=== PATIENT | male | born 2000 | race Caucasian/White ===

== ENCOUNTER 2022-05-19 03:24 | Emergency (ER) | payer MEDICAID, SELFPAY ==
[2022-05-19 03:34] VITALS: BP 111/60; PULSE 81; RESP 22; TEMP 36.4; O2SAT 97; BMI 23.3
[2022-05-19 04:19] LABS: MANUAL DIFF FLAG NO
[2022-05-19 04:21] LABS: Basophils Percent Auto 0.2 % (0-2); Eosinophils Percent Auto 0.1 % (0-4); Hematocrit 40.8 % (42.0-52.0); Hemoglobin 13.4 g/dl (14.0-18.0); Imm Gran Abs Auto 0.07 X10*3/uL (0.00-0.03); Imm Gran Pct Auto 0.4 % (0.0-0.4); Lymphocytes Absolute Auto 1.2 X10*3/uL (1.2-4.9); Lymphocytes Percent Auto 7.1 % (20-40); Mean Corpuscular HGB Conc 32.8 g/dl (31.0-36.0); Mean Corpuscular Hemoglobin 26.6 pg (27.0-33.0); Mean Platelet Volume 8.9 fL (9.4-12.4); Monocytes Absolute Auto 0.5 X10*3/uL (0.1-1.2); Neutrophils Percent Auto 89.2 % (45-73); Platelet Count 380 X10*3/uL (160-400); Red Blood Count 5.04 X10*6/uL (4.60-5.80); Red Cell Distribution Width 14.6 % (11.0-16.0); White Blood Count 16.9 X10*3/uL (4.8-10.8)
[2022-05-19] MEDS: Ondansetron ODT 4 MG TAB.RAPDIS TRANSLINGU (04:22)
[2022-05-19 04:35] LABS: Anion Gap 16 (12-20); Blood Urea Nitrogen 13 mg/dL (9-16); Calcium 9.7 mg/dL (8.4-10.2); Carbon Dioxide 26 mmol/L (22-29); Chloride 103 mmol/L (96-108); Estimated Glomerular Filt Rate > 60; Glucose Random 144 mg/dL (60-115); Sodium 141 mmol/L (135-145)
--- NOTE | 2022-05-19 04:52 | ED.HA ---
HPI - Headache General Chief Complaint: Headache Stated Complaint: Vomiting/Headache Time Seen by Provider: 05/19/22 03:47 Source: patient Mode of arrival: ambulatory History of Present Illness HPI Narrative: 21-year-old male up-to-date on vaccines, no sick contacts reports that he has significant sinus pain and primarily pain behind the left eye that is worse with movement but otherwise denies any fever, chills, sore throat, new cough but has had some nausea and vomiting but denies any diarrhea or urinary symptoms. Related Data Allergies Allergy/AdvReac Type Severity Reaction Status Date / Time No Known Allergies Allergy Unverified 12/03/19 17:10 [No Known Allergies*] Review of Systems Review of Systems: Pertinent positives and negatives as stated in HPI [facility] Past Medical History Source: nursing notes reviewed Social History Social History Alcohol intake: never Smoked in Last 30 Days: Yes Use of substances other than those prescribed or required for medical reasons: Yes Substance Use Type: Marijuana Advance Directives: No Advance Directives Information Provided: No Physical Exam Vital Signs: Vital Signs: Last Vital Signs Temp 97.6 F 05/19/22 03:34 Pulse 91 05/19/22 06:47 Resp 16 05/19/22 06:47 BP 105/55 L 05/19/22 06:47 Pulse Ox 98 05/19/22 06:47 O2 Del Method 05/19/22 06:47 BMI result Body Mass Index 23.3 VITAL SIGNS: Reviewed. GENERAL: Well developed, well nourished, in no acute distress. HEAD: Normocephalic/atraumatic, tenderness to palpation over bilateral maxillary sinuses and frontal sinus EYES: PERRLA, EOMI but with pain EARS: Ext canals without abnormality, TMs non-bulging and non-erythematous NOSE: Nares patent bilateral OROPHARYNX: no oral lesions noted, posterior pharynx clear and non-erythematous without noted tonsillar exudates but noted erythema NECK: Supple, + adenopathy LUNGS: Normal breath sounds. No adventitious sounds or accessory muscle use. SpO2<97> CARDIOVASCULAR: Regular rate and rhythm without noted murmurs ABDOMEN: Soft, non-tender, non-distended with bowel sounds. MUSCULOSKELETAL: No tenderness, deformities, or effusions noted on gross inspection. EXTREMITIES: No cyanosis, clubbing or edema. SKIN: Inspection of the skin reveals no rashes NEUROLOGIC: Alert and oriented x 4. Strength and sensation to light touch were grossly intact x 4. Medications Administered Discontinued Medications Generic Name Dose Route Start Last Admin Trade Name Luciano PRN Reason Stop Dose Admin Acetaminophen 975 mg 05/19/22 04:57 05/19/22 05:42 Acetaminophen 325 Mg Tablet PO 05/19/22 04:58 975 mg ONCE ONE Administration Sodium Chloride 1,000 mls @ 999 mls/hr 05/19/22 04:45 05/19/22 06:37 Ns IV 05/19/22 05:45 Infused .Q1H1M TANNER Infusion Sodium Chloride 2,000 mls @ 999 mls/hr 05/19/22 05:00 05/19/22 07:22 Ns IV 05/19/22 07:00 Not Given .Q2H1M TANNER Ketorolac Tromethamine 15 mg 05/19/22 04:57 05/19/22 05:43 Ketorolac Tromethamine 30 Mg/Ml Vial IVPUSH 05/19/22 04:58 15 mg ONCE ONE Administration Ondansetron HCl 4 mg 05/19/22 03:58 05/19/22 04:22 Ondansetron Odt 4 Mg Tab.Rapdis TRANSLINGU 05/19/22 03:59 4 mg ONCE ONE Administration Medical Decision Making Medical Decision Making MDM Narrative: 21-year-old male presents with nausea, vomiting, headache, specifically a lot of pain behind the left eye but denies any double vision/blurred vision associated with this and denies any otherwise trauma. All symptoms seem to have started after patient smoke marijuana. Review of all investigations and my interpretation is patient is had acute reaction to marijuana inhalation and after a received IV fluids and analgesics he states he has had complete resolution of his symptoms and he is ready to go. Patient is demanding to leave. Differential Diagnosis Please see the discussion above Lab Data Please see the discussion above 05/19/22 04:15 05/19/22 04:15 Labs: Lab Results 05/19/22 05/19/22 05/19/22 Range/Units 04:15 04:15 04:15 WBC 16.9 H (4.8-10.8) X10*3/uL RBC 5.04 (4.60-5.80) X10*6/uL Hgb 13.4 L (14.0-18.0) g/dl Hct 40.8 L (42.0-52.0) % MCV 81.0 (80.0-98.0) fL MCH 26.6 L (27.0-33.0) pg MCHC 32.8 (31.0-36.0) g/dl RDW 14.6 (11.0-16.0) % Plt Count 380 (160-400) X10*3/uL MPV 8.9 L (9.4-12.4) fL Immature Gran % (Auto) 0.4 (0.0-0.4) % Neut % (Auto) 89.2 H (45-73) % Lymph % (Auto) 7.1 L (20-40) % Blaine % (Auto) 3.0 (2-11) % Eos % (Auto) 0.1 (0-4) % Baso % (Auto) 0.2 (0-2) % Lymph # (Auto) 1.2 (1.2-4.9) X10*3/uL Blaine # (Auto) 0.5 (0.1-1.2) X10*3/uL Eos # (Auto) 0.0 (0.0-0.4) X10*3/uL Baso # (Auto) 0.0 (0.0-0.2) X10*3/uL Abs Immat Gran (auto) 0.07 H (0.00-0.03) X10*3/uL Absolute Neuts (auto) 15.0 H (2.0-8.3) x10*3/uL Absolute Nucleated RBC 0.000 (0.0-0.012) X10*3/uL Nucleated RBC % (auto) 0.0 (0.0-0.2) /100WBC Sodium 141 (135-145) mmol/L Potassium 4.0 (3.3-5.1) mmol/L Chloride 103 (96-108) mmol/L Carbon Dioxide 26 (22-29) mmol/L Anion Gap 16 (12-20) BUN 13 (9-16) mg/dL Creatinine 0.84 (0.5-1.4) mg/dL Estim Creat Clear Calc 121.0 Estimated GFR > 60 Random Glucose 144 H (60-115) mg/dL Calcium 9.7 (8.4-10.2) mg/dL Influenza Type A (PCR) NEGATIVE (Negative) Influenza Type B (PCR) NEGATIVE (Negative) RSV RNA Qual (PCR) NEGATIVE (Negative) SARS-CoV-2 RNA (RT-PCR) NEGATIVE (Negative) Discharge Plan Discharge Clinical Impression: Headache, Marijuana use Patient Disposition: Home, Self-Care Instructions: Acute Headache (ED), Cannabis Abuse (ED) Additional Instructions: Please follow-up with your primary care provider. Interventions: ED Discharge Assessment Last Done: 05/19/22 07:37
[2022-05-19 04:57] LABS: Influenza A PCR NEGATIVE (Negative); Influenza B PCR NEGATIVE (Negative); Resp Syncy Virus RNA Qual PCR NEGATIVE (Negative); SARS COV2 PCR INHOUSE NEGATIVE (Negative)
[2022-05-19] MEDS: 0.9 % Sodium Chloride 1,000 ML 999 ML IV (05:02)
[2022-05-19] MEDS: Acetaminophen 325 MG TABLET 975 MG PO (05:42)
[2022-05-19] MEDS: Ketorolac Tromethamine 30 MG/ML VIAL 15 MG IVPUSH (05:43)
[2022-05-19 06:47] VITALS: BP 105/55; PULSE 91; RESP 16; O2SAT 98
--- NOTE | 2022-05-19 07:35 | PC.NURSE ---
pt reports he needs to leave now as his ride it outside the front of the hosiptal. pt requesting his IV to be removed. pt reporting that his headache is gone and he feels much better. I spoke with Dr. Monae who reported he is ok to go at this time if his ride is here. IV removed and pt d/c
== END 2022-05-19 08:20 | disposition home or self-care (01) ==
PROVIDERS: Emergency Provider Student in an Organized Health Care Education/Training Program
DX: R51.9 Headache, unspecified (principal); F12.90 Cannabis use, unspecified, uncomplicated; Z20.822 Contact with and (suspected) exposure to COVID-19; Z20.828 Contact with and (suspected) exposure to other viral communicable diseases
CPT/HCPCS: 0241U; 36415; 80048; 85025; 96361; 96374; 99284; 99285; J1885

== ENCOUNTER 2022-06-16 11:04 | Emergency (ER) | payer MEDICAID, SELFPAY ==
--- NOTE | 2022-06-16 11:08 | ED_ITS ---
HPI - Skin/Abscess/Foreign Bdy General Chief complaint: Skin/Abscess/Foreign Body <ANGELLA Barger - Last Filed: 06/16/22 11:12> Stated complaint: l hand rash arm and leg <ANGELLA Barger - Last Filed: 06/16/22 11: 12> Time Seen by Provider: 06/16/22 11:17 <ANGELLA Barger Last Filed: 06/16/22 11:12> History of Present Illness HPI narrative: Patient complains of mildly painful rash on left palm, right sole of foot wrist ,armpit and several other places on the body that began 3 days ago, he denies any other illness he has had no fever no recent viral illness that he is aware of, he is sexually active, he does go outdoors but is not aware of any tick exposure, he is eating drinking and normal level of activity <ANGELLA Kaur Last Filed: 06/24/22 10:42> Related Data Home medications: Previous Rx's Medication Instructions Recorded doxycycline hyclate 100 mg capsule 100 mg PO BID 10 days #20 caps 06/16/22 <ANGELLA Barger Last Filed: 06/16/22 11:12> Allergies/Adverse reactions: Allergies Allergy/AdvReac Type Severity Reaction Status Date / Time No Known Allergies Allergy Unverified 12/03/19 17:10 [No Known Allergies*] <ANGELLA Barger Last Filed: 06/16/22 11:12> [facility] Past Medical History Source: nursing notes reviewed <ANGELLA Kaur - Last Filed: 06/24/22 10:42> Social History Social History: Social History Alcohol intake: never Substance Use Type: Marijuana Advance Directives: No Advance Directives Information Provided: No <ANGELLA Barger Last Filed: 06/16/22 11:12> Physical Exam Vital Signs: Vital Signs: Last Vital Signs Temp 96.9 F 06/16/22 11:09 Pulse 88 06/16/22 11:09 Resp 14 06/16/22 11:09 BP 124/56 L 06/16/22 11:09 Pulse Ox 100 06/16/22 11:09 O2 Del Method Room Air 06/16/22 11:09 BMI result Body Mass Index 24.9 <ANGELLA Barger - Last Filed: 06/16/22 11:12> Vital Signs: Last Vital Signs Temp 96.9 F 06/16/22 11:09 Pulse 88 06/16/22 11:09 Resp 14 06/16/22 11:09 BP 124/56 L 06/16/22 11:09 Pulse Ox 100 06/16/22 11:09 O2 Del Method Room Air 06/16/22 11:09 BMI result Body Mass Index 24.9 <ANGELLA Kaur - Last Filed: 06/24/22 10:42> Vital Signs: Last Vital Signs Temp 96.9 F 06/16/22 11:09 Pulse 88 06/16/22 11:09 Resp 14 06/16/22 11:09 BP 124/56 L 06/16/22 11:09 Pulse Ox 100 06/16/22 11:09 O2 Del Method Room Air 06/16/22 11:09 BMI result Body Mass Index 24.9 <ANGELLA Wiseman - Last Filed: 06/27/22 16:15> General appearance comfortable cooperative no distress Eyes no redness or discharge The pharynx is clear with no swelling of lips tongue or uvula no sores inside the mouth no rash Neck is supple Respiratory no distress Chest is clear to auscultation bilateral Extremities full range of motion x4 , no joint swelling Skin there are multiple red macules on left palm, sole of right foot, left wrist left armpit and multiple others on trunk and extremities, there is no surrounding erythema, there is no vesicular rash no petechiae no purpura Patient refused genital exam but denies any lesions or sores <ANGELLA Kaur - Last Filed: 06/24/22 10:42> Course Course Course Narrative: This is an RME: Additional HPI, ROS, PE not included below will be deferred to primary provider. 21 year old male presenting to the emergency department for rash on upper extremities, lower extremities, palm of left hand times a few days worsening. Patient reports painful sores to the of his hand, behind his left elbow and on his left lower extremity. Patient states he is sexually active with protection each time. He tells me before this started he was not feeling well he had some viral illness. Denies any other complaints at this time. Physical exam with painful sores to left palm, elbow and behind left knee. Some surrounding erythema. Viral illness likely. Will order syphilis screen. <ANGELLA Barger - Last Filed: 06/16/22 11:12> This is an RME: Additional HPI, ROS, PE not included below will be deferred to primary provider. 21 year old male presenting to the emergency department for rash on upper extremities, lower extremities, palm of left hand times a few days worsening. Patient reports painful sores to the of his hand, behind his left elbow and on his left lower extremity. Patient states he is sexually active with protection each time. He tells me before this started he was not feeling well he had some viral illness. Denies any other complaints at this time. Physical exam with painful sores to left palm, elbow and behind left knee. Some surrounding erythema. Viral illness likely. Will order syphilis scree patient with multiple discrete macules including on left palm and right sole of foot as well as other discrete areas of the body, no surrounding erythema No systemic illness no fevers, otherwise feels fine Syphilis test is sent, tick screen is sent, patient is placed on doxycycline for possible tick-borne illness and is discharged <ANGELLA Kaur - Last Filed: 06/24/22 10:42> Reevaluation(s) Reevaluation #1: 06/27/22--[id number]-- tick-borne illness labs were not performed, call to inform patient. Listed number not in service, called mother and informed her to have patient call us back >[phone]--spoke with patient made aware that labs were not run, he currently does not have a PCP, told patient he is welcome to return to the ED for lab draw <ANGELLA Wiseman - Last Filed: 06/27/22 16:15> Medications Administered Discontinued Medications Generic Name Dose Route Start Last Admin Trade Name Freq PRN Reason Stop Dose Admin Doxycycline Monohydrate 100 mg 06/16/22 12:07 06/16/22 12:16 Doxycycline Monohydrate 100 Mg Capsule PO 06/16/22 12:08 100 mg ONCE ONE Administration <ANGELLA Barger - Last Filed: 06/16/22 11:12> Medications Administered Discontinued Medications Generic Name Dose Route Start Last Admin Trade Name Luciano PRN Reason Stop Dose Admin Doxycycline Monohydrate 100 mg 06/16/22 12:07 06/16/22 12:16 Doxycycline Monohydrate 100 Mg Capsule PO 06/16/22 12:08 100 mg ONCE ONE Administration <ANGELLA Kaur - Last Filed: 06/24/22 10:42> Medications Administered Discontinued Medications Generic Name Dose Route Start Last Admin Trade Name Luciano PRN Reason Stop Dose Admin Doxycycline Monohydrate 100 mg 06/16/22 12:07 06/16/22 12:16 Doxycycline Monohydrate 100 Mg Capsule PO 06/16/22 12:08 100 mg ONCE ONE Administration <ANGELLA Wiseman - Last Filed: 06/27/22 16:15> Medical Decision Making Lab Data Labs: Lab Results 06/16/22 06/16/22 Range/Units 11:15 11:15 T.pallidum Ab (EIA) Nonreactive (Nonreactive) A.phagocytophil DNA PCR TNP Babesia microti DNA PCR TNP Borrelia sp DNA (PCR) TNP Borrelia miyamotoi (PCR) TNP E.chaffeensis DNA (PCR) TNP Tick-borne Disease Ab TNP <ANGELLA Barger - Last Filed: 06/16/22 11:12> Lab Results 06/16/22 06/16/22 Range/Units 11:15 11:15 T.pallidum Ab (EIA) Nonreactive (Nonreactive) A.phagocytophil DNA PCR TNP Babesia microti DNA PCR TNP Borrelia sp DNA (PCR) TNP Borrelia miyamotoi (PCR) TNP E.chaffeensis DNA (PCR) TNP Tick-borne Disease Ab TNP <ANGELLA Kaur - Last Filed: 06/24/22 10:42> Lab Results 06/16/22 06/16/22 Range/Units 11:15 11:15 T.pallidum Ab (EIA) Nonreactive (Nonreactive) A.phagocytophil DNA PCR TNP Babesia microti DNA PCR TNP Borrelia sp DNA (PCR) TNP Borrelia miyamotoi (PCR) TNP E.chaffeensis DNA (PCR) TNP Tick-borne Disease Ab TNP <ANGELLA Wiseman - Last Filed: 06/27/22 16:15> Discharge Plan Discharge Clinical Impression: Rash <ANGELLA Barger - Last Filed: 06/16/22 11:12> Patient Disposition: Home, Self-Care <ANGELLA Barger - Last Filed: 06/16/22 11:12> Additional Instructions: We are treating for possible tick-borne illness with doxycycline Tests of her blood will come back within a week and we will call you if anything is positive Follow with primary doctor next week if not improved Return to the ER any time for any worse condition or any concerns, or if unable to obtain follow-up with your doctor <ANGELLA Barger - Last Filed: 06/16/22 11:12> Prescriptions: New doxycycline hyclate 100 mg capsule 100 mg PO BID 10 Days Qty: 20 0RF <ANGELLA Barger - Last Filed: 06/16/22 11:12> Interventions: ED Discharge Assessment Last Done: 06/16/22 12:18 <ANGELLA Barger - Last Filed: 06/16/22 11:12> Discharge Date/Time: 06/16/22 12:19 <ANGELLA Barger - Last Filed: 06/16/22 11:12>
[2022-06-16 11:09] VITALS: BP 124/56; PULSE 88; RESP 14; TEMP 36.1; O2SAT 100; BMI 24.9
--- NOTE | 2022-06-16 11:17 | MHC.EDTECH ---
Labs collected and sent
[2022-06-16] MEDS: Doxycycline Monohydrate 100 MG CAPSULE PO (12:16)
[2022-06-18 08:26] LABS: Syphilis Screen Nonreactive (Nonreactive)
== END 2022-06-16 12:19 | disposition home or self-care (01) ==
PROVIDERS: Physician Assistant; Physician Assistant Medical; Emergency Provider Emergency Medicine
DX: R21 Rash and other nonspecific skin eruption (principal)
CPT/HCPCS: 36415; 86780; 87798; 99282; 99283

== ENCOUNTER 2024-03-02 19:43 | Emergency (ER) | payer MEDICAID, SELFPAY ==
--- NOTE | ~2024-03-02 | XR_ITS ---
EXAMINATION: XR KNEE, RIGHT CLINICAL INFORMATION: Rt knee pain COMPARISON: None available. TECHNIQUE: Two views of the right knee. FINDINGS: No fracture. No dislocation. No joint effusion. 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 No abnormal periosteal reaction. XR/XR knee RT 2V IMPRESSION: Normal right knee. Electronically signed by: Suleiman Macedo MD 03/02/2024 11:57 PM GEOR[facility] BAKER
--- OUTSIDE RECORDS SUMMARY | 2024-03-02 19:45 | XMS_ITS | Continuity of Care Document ---
Author Organization [facility] [place] [facility] Address [address], [address] [place] [address]- Care Team Providers Care Programming Instructor Name Role Phone Not on Staff, PCP Primary Care Physician Unavail able Encounter 02/18/24 - 02/25/24 [facility] [address], [address] [place] [address]- Attending Physician: Christiano Melissa Admitting Physician: Christiano Melissa Referring Physician: Christiano Melissa Encounter Type: OutPatient One Time Allergies, Adverse Reactions, Alerts Substance Criticality Severity Reaction Reaction Severity Status amoxicillin Peanut Active penicillins Active Medications Focalin XR 20 mg oral capsule, extended release 1 capsule = 20 mg, By Mouth, Daily in AM, reji gutierres, # 30 capsule, 0 Refills, Maintenance, 12/31/14 11:00:07 AM EDT, CR Capsule Start Date: 12/31/14 Stop Date: 01/30/15 Status: Ordered Quantity: 30.0 Unit: capsule Repeat number: 1 Problem List Condition Confirmation Course Effective Dates Status Health St [facility] Informant Growth hormone deficiency Confirmed Active SHORT STATURE Confirmed Active Social History Social History Type Response Smoking Status Never smoker entered on: 10/14/14 Sex Sex Representation Male (finding) Patient Care team information Care Team Personnel Name: Not on Staff, PCP Position: S Physician (General Medicine) Member Role: PCP Care Team Related Persons Name: KOEHLERDEBBIE Name: DEBBIE KOEHLER Insurance Providers Guarantor name: TREE KOEHLER Health Plan Information #: 1 Payer: [employer]: [facility] Member Number: [id number] Policy Number: NA Group Number: NA Health Plan Information #: 2 Payer: [employer]: [facility] Member Number: [id number] Policy Number: NA Group Number: NA
[2024-03-02 19:55] VITALS: BP 122/72; PULSE 109; RESP 16; TEMP 36.8; O2SAT 98; BMI 21.8
--- NOTE | 2024-03-02 22:41 | ED_ITS ---
HPI - General Adult General Chief complaint: Extremity Injury, Lower Stated complaint: rt leg pain Time Seen by Provider: 03/02/24 22:41 History of Present Illness ED Provider: Odalys NAJERA narrative: The patient is an otherwise healthy 23-year-old male who says that about 3 weeks ago he injured his right knee when he was playing basketball. He says that he planted his right foot very firmly and then stopped quickly. He felt a pain on the medial aspect of the knee. The pain has been persistent since then. He has been wearing a small compression brace on the knee. He has not had any improvement and ultimately he comes to the emergency room for evaluation. No numbness or tingling in the foot. He says he can not fully straighten the leg at the knee. No other injuries. Related Data Previous Rx's ?Medication ?Instructions ?Recorded doxycycline hyclate 100 mg capsule 100 mg PO BID 10 days #20 caps 06/16/22 ibuprofen 400 mg tablet 400 mg PO Q6H PRN pain #14 tabs 03/02/24 Allergies Allergy/AdvReac Type Severity Reaction Status Date / Time No Known Allergies Allergy Verified 03/02/24 19:57 [No Known Allergies*] Review of Systems Review of Systems: Yes all other systems are reviewed and are negative [facility] Social History Social History Alcohol intake: never Smoked in Last 30 Days: No Use of substances other than those prescribed or required for medical reasons: Yes Substance Use Type: Marijuana Advance Directives: No Advance Directives Information Provided: No Do you have a plan to hurt others: No Plan Physical Exam ED Vital Signs: Vital Signs - 24 hr 03/02/24 19:55 Temperature 98.2 F Pulse Rate 109 H Respiratory Rate 16 Blood Pressure 122/72 Pulse Oximetry 98 Oxygen Delivery Method Room Air BMI result Body Mass Index 21.8 Const Other: The patient is a slim, athletic looking 23-year-old who was awake and alert. He is in no obvious distress. HENMT Head: Yes normal to inspection Face and sinus: Yes normal facial exam Mouth: Normal oral and palatal mucosa present and moist mucous membranes Eyes General: appearance normal, both eyes and all related structures Neck Neck: Yes full ROM Resp Effort & Inspection: normal respiratory effort Auscultation: clear to auscultation bilaterally Cardio Rate: regular rate Rhythm: regular rhythm Heart sounds: S1 normal heart sound present and S2 normal heart sound present Neuro Other: The patient is awake and alert with a normal mental status. Normal sensation in the right foot. Extrem Other: No deformity to the right knee. No gross swelling or obvious effusion on physical exam. He is tender primarily on the medial aspect of the right knee. He is able to bend the knee but states that fully extending the knee is too painful. He is holding the knee so that it is about 15 degrees from full extension. Medications Administered Discontinued Medications Generic Name Dose Route Start Last Admin Trade Name Luciano PRN Reason Stop Dose Admin Acetaminophen 975 mg 03/02/24 22:49 03/02/24 23:06 Acetaminophen 325 Mg Tablet PO 03/02/24 22:50 975 mg ONCE ONE Administration Ketorolac Tromethamine 30 mg 03/02/24 22:49 03/02/24 23:07 Ketorolac Tromethamine 30 Mg/Ml Vial IM 03/02/24 22:50 30 mg ONCE ONE Administration Medical Decision Making Medical Decision Making [facility] Narrative: The patient is an athletic 23-year-old who presents with 3 weeks of right knee pain after twisting the knee playing basketball. He seems to have pain at the medial aspect of the right knee. A plain film of the right knee shows no acute findings. 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 No joint effusion. I suspect the patient has a strain of the knee, possibly specifically a strain to the medial collateral ligament of the right knee. He will be given a knee immobilizer and crutches and advised to follow up with Orthopedics. Discharge Plan Discharge Clinical Impression: Right knee sprain Patient Disposition: Home, Self-Care Instructions: Knee Sprain (ED) Additional Instructions: You had an x-ray of your right knee. I do not see any acute injury on your x- ray but the official radiologist report is not yet available. I will contact you if the radiologist sees something I have not seen. I believe you have sustained a sprain to your right knee. Specifically I think you have a sprain of your medial collateral ligament of the right knee. You has been given a knee immobilizer to keep the knee still. You has been given crutches to help keep weight off the leg. Please stay off the leg as much as you can for the next several days. Elevate the leg when you were sitting. You may use ice to the knee. When you are moving around please use the knee immobilizer and the crutches. You have been given the contact information for the orthopedic office. Please call them in the morning for a follow up appointment to discuss this injury further. I have sent a prescription for ibuprofen that you may use every 6 hours as needed for pain. You may also use [id number] acetaminophen. You may take 2 extra-strength acetaminophen at a time up to 3 times per day. Return to the emergency room if significantly worse. Prescriptions: New ibuprofen 400 mg tablet 400 mg PO Q6H PRN (Reason: pain) Qty: 14 0RF No Action doxycycline hyclate 100 mg capsule 100 mg PO BID 10 Days Qty: 20 0RF [place]: [facility] [Provider Group] (right knee sprain) Discharge Date/Time: 03/03/24 00:03 Print Language: Thai
[2024-03-02] MEDS: Acetaminophen 325 MG TABLET 975 MG PO (23:06)
[2024-03-02] MEDS: Ketorolac Tromethamine 30 MG/ML VIAL IM (23:07)
== END 2024-03-03 00:03 | disposition home or self-care (01) ==
PROVIDERS: Emergency Provider Emergency Medicine
DX: S83.91XA Sprain of unspecified site of right knee, initial encounter (principal); M25.561 Pain in right knee; Y93.67 Activity, basketball; Y92.89 Other specified places as the place of occurrence of the external cause; Y99.8 Other external cause status
CPT/HCPCS: 73560; 96372; 99284; J1885

== ENCOUNTER 2024-05-01 08:39 | Outpatient (REF) | payer MEDICAID, SELFPAY ==
--- NOTE | ~2024-05-01 | XR_ITS ---
CLINICAL HISTORY: M25.569 - Pain in unspecified knee 1 view right knee Comparison: None Findings: No fractures or dislocations. No significant loss of joint space, osteophytes, or erosions. No joint effusion. No radiopaque foreign body. IMPRESSION: 1. No acute findings. This document has been electronically signed by: Sudhir Sher MD on 05/02/2024 07:24:36
--- OUTSIDE RECORDS SUMMARY | 2024-05-04 08:43 | XMS_ITS | Encounter Summary ---
Author Organization [facility] Address [address] [place] [address] Phone Care Team Providers Care Textile Examiner Name Role Phone Dorene Bashir MD Primary Care Provider [phone] Encounter Details Date Type Department Care Team (Late st Contact Info) Description 11/01/2016 Conversion Encounter [facility] [place] [address] [place] [address] Social History Tobacco Use Types Packs/Day Years [...] on filedocumented in this encounter Care Teams Textile Examiner Relationship Specialty Start Date End Date Dorene Bashir MD [address] [place] [address] PCP - General Pediatrics 11/16/17 10/22/22 documented as of this encounter
--- OUTSIDE RECORDS SUMMARY | 2024-05-04 08:43 | XMS_ITS | Encounter Summary ---
Author Organization [facility] Address [address] [place] [address] Phone Care Team Providers Care Security Public Safety Officer Name Role Phone Dorene Bashir MD Primary Care Provider [phone] Encounter Details Date Type Department Care Team (Late st Contact Info) Description 01/04/2012 Documentation [facility] [place] Family Medicine [address] [place], [place] [phone] Family Medicine, Physician [address] [place], [place] [phone] Social History Tobacco Use Types Packs/Day Years [...] on filedocumented in this encounter Care Teams Security Public Safety Officer Relationship Specialty Start Date End Date Dorene Bashir MD [address] [place] [address] PCP - General Pediatrics 11/16/17 10/22/22 documented as of this encounter
--- OUTSIDE RECORDS SUMMARY | 2024-05-04 08:43 | XMS_ITS | Encounter Summary ---
Author Organization [facility] Address [address] [place] [address] Phone Care Team Providers Care Chucker Name Role Phone Dorene Bashir MD Primary Care Provider [phone] Encounter Details Date Type Department Care Team (Late st Contact Info) Description 08/31/2011 Documentation [facility] [place] [address] [place], [place] [phone] Family Medicine, Physician [address] [place], [place] [phone] Social History Tobacco Use Types Packs/Day Years [...] on filedocumented in this encounter Care Teams Chucker Relationship Specialty Start Date End Date Dorene Bashir MD [address] [place] [address] PCP - General Pediatrics 11/16/17 10/22/22 documented as of this encounter
--- OUTSIDE RECORDS SUMMARY | 2024-05-04 08:43 | XMS_ITS | Encounter Summary ---
Author Organization [facility] Address [address] [place] [address] Phone Care Team Providers Care Technical Services Specialist Name Role Phone Dorene Bashir MD Primary Care Provider [phone] Encounter Details Date Type Department Care Team (Late st Contact Info) Description 09/07/2011 Documentation [facility] [place] [address] [place], [place] [phone] Family Medicine, Physician [address] [place], [place] [phone] Social History Tobacco Use Types Packs/Day Years [...] on filedocumented in this encounter Care Teams Technical Services Specialist Relationship Specialty Start Date End Date Dorene Bashir MD [address] [place] [address] PCP - General Pediatrics 11/16/17 10/22/22 documented as of this encounter
--- OUTSIDE RECORDS SUMMARY | 2024-05-04 08:43 | XMS_ITS | Encounter Summary ---
Author Organization [facility] Address [address] [place] [address] Phone Care Team Providers Care Digital Producer Name Role Phone Dorene Bashir MD Primary Care Provider [phone] Encounter Details Date Type Department Care Team (Late st Contact Info) Description 09/25/2011 Documentation [facility] [place] Family Medicine [address] [place], [place] [phone] Family Medicine, Physician [address] [place], [place] [phone] Social History Tobacco Use Types Packs/Day Years [...] on filedocumented in this encounter Care Teams Digital Producer Relationship Specialty Start Date End Date Dorene Bashir MD [address] [place] [address] PCP - General Pediatrics 11/16/17 10/22/22 documented as of this encounter
--- OUTSIDE RECORDS SUMMARY | 2024-05-04 08:43 | XMS_ITS | Encounter Summary ---
Author Organization [facility] Address [address] [place] [address] Phone Care Team Providers Care Transfer Table Operator Name Role Phone Dorene Bashir MD Primary Care Provider [phone] Encounter Details Date Type Department Care Team (Late st Contact Info) Description 12/19/2011 Documentation [facility] [place] Family Medicine [address] [place], [place] [phone] Family Medicine, Physician [address] [place], [place] [address]461 Social History Tobacco Use Types Packs/Day Years [...] on filedocumented in this encounter Care Teams Transfer Table Operator Relationship Specialty Start Date End Date Dorene Bashir MD [address] [place] [address] PCP - General Pediatrics 11/16/17 10/22/22 documented as of this encounter
--- OUTSIDE RECORDS SUMMARY | 2024-05-04 08:44 | XMS_ITS | Clinical Summary ---
Author Organization [facility] Address [address] [place] [address] Phone Care Team Providers Care Snaker Tractor Driver Name Role Phone Unavailable Primary Care Provider [...] disorder) 07/12/2009 Overview (12/04/2018): Seeescobar Molina at [facility]. Was on focalin in 2014 but no longer. DCF involved in past; as of 2018., back on focalin per psych and has therapist Seeescobar Molina at [facility]. Was on focalin in 2014 but no longer. DCF involved in past Learning difficulty 07/12/2009 Overview (12/04/2018): part time SPED part time SPED per Mom--2/15 GHD (growth hormone deficiency) 07/12/2009 Overview (03/02/2017): Failed zGH stim test in 2009. Has been on & off growth hormone over past few years. Lots of compliance issues. Not on GH currently. Last note from Endo 2014. Psoriasis 07/12/2009 Overview (12/04/2018): Used to see derm in [place]. Non-compliant with meds & f/u. Saw Janae here in 04/03 and on triamcinolone cream and derma-smoothe Used to see derm in [place]. Non-compliant with meds & FU. No meds currently Assessment & Plan (12/04/2018 10:57 AM EDT): Images from the original note were not included. [place]-smoothe FS scalp oil Q HS to scalp [...]
--- OUTSIDE RECORDS SUMMARY | 2024-05-04 08:44 | XMS_ITS | Encounter Summary ---
Author Organization [facility] Address [address] [place] [address] Phone Care Team Providers Care Phys Therapist Name Role Phone Dorene aBshir MD Primary Care Provider [phone] Encounter Details Date Type Department Care Team (Late st Contact Info) Description 01/06/2014 Documentation [facility] [place] Family Medicine [address] [place], [place] [phone] Family Medicine, Physician [address] [place], [place] 432411 Social History Tobacco Use Types Packs/Day Years [...] on filedocumented in this encounter Care Teams Phys Therapist Relationship Specialty Start Date End Date Dorene Bashir MD [address] [place] [address] PCP - General Pediatrics 11/16/17 10/22/22 documented as of this encounter
--- OUTSIDE RECORDS SUMMARY | 2024-05-04 08:44 | XMS_ITS | Encounter Summary ---
Author Organization [facility] Address [address] [place] [address] Phone Care Team Providers Care Electrical Integrator Name Role Phone Dorene Bashir MD Primary Care Provider [phone] Encounter Details Date Type Department Care Team (Late st Contact Info) Description 06/20/2009 Documentation [facility] [place] Family Medicine [address] [place], [place] [phone] Family Medicine, Physician [address] [place], [place] [phone] Social History Tobacco Use Types Packs/Day Years [...] filedocumented in this encounter Care Teams Electrical Integrator Relationship Specialty Start Date End Date Dorene Bashir MD [address] [place] [address] PCP - General Pediatrics 11/16/17 10/22/22 documented as of this encounter
--- OUTSIDE RECORDS SUMMARY | 2024-05-04 08:44 | XMS_ITS | Encounter Summary ---
Author Organization [facility] Address [address] [place] [address] Phone Care Team Providers Care Manager Business Information Name Role Phone Dorene Bashir MD Primary Care Provider [phone] Encounter Details Date Type Department Care Team (Late st Contact Info) Description 01/06/2014 Documentation [facility] [place] Family Medicine [address] [place], [place] [phone] Family Medicine, Physician [address] [place], [place] 212781 Social History Tobacco Use Types Packs/Day Years [...] on filedocumented in this encounter Care Teams Manager Business Information Relationship Specialty Start Date End Date Dorene Bashir MD [address] [place] [address] PCP - General Pediatrics 11/16/17 10/22/22 documented as of this encounter
== END 2024-05-01 08:40 | disposition home or self-care (01) ==
LOC: HO.HOSX 08:39
PROVIDERS: Visit Provider Physician Assistant
DX: M25.561 Pain in right knee (principal); M23.91 Unspecified internal derangement of right knee
CPT/HCPCS: 73560; 99212

== ENCOUNTER 2024-05-01 09:00 | Outpatient (AMB) | payer MEDICAID, SELFPAY ==
--- NOTE | 2024-05-01 09:11 | A.OFFVIS_ITS ---
Vital Signs 05/01/24 09:13 Weight 135 lb Handedness Right Intake Visit Reasons: New Pt - RT knee sprain Intake Note: Jose Alberto is a 23 year old male who presents today with his mom? as a new patient for a evaluation of his right knee pain. Patient was seen at the ED on 03/02/24 for his knee from an injury that happen a couple weeks before his visit. He states that he was playing basketball. Patient mentions that he planted his right foot very firmly and then stopped quick. He felt pain on the medial and lateral aspect of the knee. He states that his pain is a 6/10 on the pain scale. Patient was given a knee immobilizer with crutches which gave him relief. He mentions that he was walking and he felt his knee give out. Patient hasnt taken any pain medication to help with the pain. Allergies No Known Allergies [No Known Allergies*] Allergy (Verified 05/01/24 09:17) HPI HPI New Pt - RT knee sprain: Details: Mr. Mccauley is a 23-year-old male who presents to the office today for a evaluation of right knee pain. Patient was seen in the ED on 03/02/24 for his kn ee but the injury that happen a couple weeks before that visit. He states that he was playing basketball and planted his right foot and stopped quickly. He felt pain on the medial and lateral aspect of the knee. He reports that he has episodes of giving out and feels like he has a mechanical blockage and cannot fully extend. [facility] Social History (Updated 05/01/24 @ 09:17 by Fili Santoro) Alcohol intake: never Patient Tobacco Use Status: Never used Tobacco Substance Use Type: Marijuana Current occupational status: unemployed Review of Systems Const All systems reviewed & are unremarkable except as noted in HPI and below Physical Exam Const General: cooperative, healthy appearing and no acute distress Resp Effort & Inspection: normal respiratory effort and able to speak in complete sentences Cardio Rate: regular rate Peripheral pulses: Peripheral pulses 2+ throughout Skin Lesions: no lesions Rashes: no rashes Extrem Other: Right knee normal to inspection no ecchymosis, joint effusion or erythema. Range of motion 0-110 degrees. No tenderness to palpation of the medial and lateral joint lines. No tenderness with patellar grind. Patient reports that the majority of his pain is located in the quad. There is no palpable defect of the quad tendon or patellar tendon. Negative Kristen's. Negative anterior drawer. NVI. Assessment & Plan Assessment & Plan (1) Internal derangement of right knee: Code(s): M23.91 - Unspecified internal derangement of right knee Category: Medical Plan Mr. Mccauley is a 23-year-old male who presents to the office today for a evaluation of right knee pain. Patient was seen in the ED on 03/02/24 for his knee but the injury that happen a couple weeks before that visit. He states that he was playing basketball and planted his right foot and stopped quickly. He felt pain on the medial and lateral aspect of the knee. He reports that he has episodes of giving out and feels like he has a mechanical blockage and cannot fully extend. While the office today I did review the patient's x-rays that were obtained on 03/02/2024 with additional views obtained today in the office of the right knee which are negative for any acute fracture or dislocation. However there is a sharply marginated lesion at the distal her. There is no cortex disruption or periosteal reaction. However, with the patient's symptoms in office and this lesion found on x-ray I have ordered an MRI to further evaluate the integrity of the right knee and surrounding structures. He will follow up after the MRIs obtained, sooner if needed. Orders: Orders XR knee RT 1V Today M25.569 - Pain in unspecified knee Medications: Discontinued doxycycline hyclate Discontinued Reason: Patient no longer taking 100 mg PO BID 10 days 20 caps 0RF Coding Level of Care Code New Pt Level 4 (78900) Diagnoses Internal derangement of right knee M23.91
--- OUTSIDE RECORDS SUMMARY | 2024-05-01 09:24 | XMS_ITS | Encounter Summary ---
Author Organization [facility] Address [address] [place] [address] Phone Care Team Providers Care Loop Drier Operator Name Role Phone Dorene Bashir MD Primary Care Provider [phone] Encounter Details Date Type Department Care Team (Late st Contact Info) Description 08/31/2011 Documentation [facility] [place] [address] [place], [place] [phone] Family Medicine, Physician [address] [place], [place] [phone] Social History Tobacco Use Types Packs/Day Years Used Date Smoking Tobacco: Never Assessed Sex and Gender Information Value Date Recorded Sex Assigned at Not on file Legal Sex Male 5:12 PM EDT Gender Identity Not on file Sexual Orientation Not on file documented as of this encounter Plan of Treatment Not on file documented as of this encounter Visit Diagnoses Not on filedocumented in this encounter Care Teams Loop Drier Operator Relationship Specialty Start Date End Date Dorene Bashir MD [address] [place] [address] PCP - General Pediatrics 11/16/17 10/22/22 documented as of this encounter
--- OUTSIDE RECORDS SUMMARY | 2024-05-01 09:24 | XMS_ITS | Encounter Summary ---
Author Organization [facility] Address [address] [place] [address] Phone Care Team Providers Care Plant Mechanic Name Role Phone Dorene Bashir MD Primary Care Provider [phone] Encounter Details Date Type Department Care Team (Late st Contact Info) Description 09/07/2011 Documentation [facility] [place] Family Medicine [address] [place], [place] [phone] Family Medicine, Physician [address] [place], [place] [phone] Social History Tobacco Use Types Packs/Day Years [...] on filedocumented in this encounter Care Teams Plant Mechanic Relationship Specialty Start Date End Date Dorene Bashir MD [address] [place] [address] PCP - General Pediatrics 11/16/17 10/22/22 documented as of this encounter
--- OUTSIDE RECORDS SUMMARY | 2024-05-01 09:25 | XMS_ITS | Clinical Summary ---
Author Organization [facility] Address [address] [place] [address] Phone Care Team Providers Care Air Brakes Inspector Name Role Phone Unavailable Primary Care Provider Unavailabl e Allergies Active Allergy Reactions Criticality Noted Date Comments Amoxicillin Rash Low Medications FLUOCINOLONE ACETONIDE SCALP 0.01 % oilIndications: Psoriasis APPLY 1 APPLICATION TOPICALLY NIGHTLY. 118.28 mL 1 0 Active Active Problems Problem Noted Date Diagnosed Date Overweight, pediatric, BMI 85.0-94.9 percentile for age 0508/02/2011 Overview (03/02/2017): 85-90 percentile ADHD (attention deficit hyperactivity disorder) 07/12/2009 Overview (12/04/2018): [facility] Was on focalin in 2014 but no longer. DCF involved in past; as of 2018., back on focalin per psych and has therapist [facility]. Was on focalin in 2014 but no longer. 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 Has been on & off growth hormone over past few years. Lots of compliance issues. Not on GH currently. Last note from Endo 2014. Psoriasis 07/12/2009 Overview (12/04/2018): Used to see derm in [place]. Non-compliant with meds & f/u. Saw Janae here in 04/03 and on triamcinolone cream and derma-smoothe Used to see derm in [place]. Non-compliant with meds & FU. No meds currently Assessment & Plan (12/04/2018 10:57 AM EDT): Images from the original note were not included. Malabar-smoothe FS scalp oil Q HS to scalp Triamcinolone 0.1 % ointment BID to affected areas for 2-4 weeks Diflucan 100 mg QD x 10 days to cover for secondary fungal infection Follow up in 1 month in derm clinic Immunizations Immunization Administration Dates Next Due DTaP 5 11/28/2004, 3,05/13/2001, 001,2000 H1N1 07/12/2009,01/03/2009 HPV Vaccine 9 Valent 12/20/2015,09/07/2014 HPV, Quadrivalent 04/20/2014 Hep A, ped/adol 04/20/2014,07/28/2010 Hep B, ped/adol 05/13/2001,2000,2000 Hib (PRP-T) 12/05/2001, 2,03/07/2001, 001 IPV 11/28/2004, 2,03/07/2001, 001 Influenza Split 11/09/2011 Influenza, injectable, quadrivalent 12/20/2015 Influenza, injectable, trivalent 01/03/2009 Influenza, intranasal, quadrivalent 03/05/2013 MMR 11/28/2004,09/26/2001 Meningococcal Conj (Menactra) MCV4P 09/04/2012 Pneumococcal Conjugate 09/11/2002,2001,03/07/2001, 001 Tdap 09/04/2012 Varicella 09/04/2012,09/26/2001 Family History Medical History Relation Name Comments No Known Problems Sister Juli Mccauley Relation Name Status Comments Brother Matthew Mccauley Alive Brother: Sickle cell trait Father Matthew Mccauley Maternal Grandmother Materna l grandmother: Hypertension, Diabetes mellitus, Asthma Mother Saundra Mccauley Alive Mother: Sickle cell trait, Asthma Other Family history of Obesity Paternal Grandfather Paterna l grandfather: Diabetes mellitus, Diabetes mellitus, Hypertension, Asthma, heart problems, Paternal Grandmother Paterna l grandmother: Diabetes mellitus, Sister Juli Mccauley Alive Social History Tobacco Use Types Packs/Day Years Used Date Smoking Tobacco: Never Smokeless Tobacco: Never Comments:Never smoker Alcohol Use Standard Drinks/Week Comments No 0 (1 standard drink = 0.6 oz pur e alcohol) Sex and Gender Information Value Date Recorded Sex Assigned at Not on file Legal Sex Male 5:12 PM EDT Gender Identity Not on file Sexual Orientation Not on file Last Filed Vital Signs Vital Sign Reading Time Taken Comments Blood Pressure 114/72 10/27/2021 4:03 PM EDT Pulse 83 10/27/2021 4:03 PM EDT Temperature 36.3 ??C (97.4 ??F) 10/27/2021 4:03 PM ED T Respiratory Rate - - Oxygen Saturation - - Inhaled Oxygen Concentration - - Weight 65.4 kg (144 lb 3.2 oz) 10/27/2021 4:03 P M EDT Height 162.7 cm (5' 4.06 ) 12/04/2018 10:26 AM E DT Body Mass Index 24.71 12/04/2018 10:26 AM EDT Plan of Treatment Health Maintenance Due Date Last Done Comments Men B Vaccine (1 of 2 - Standard) 2016 DTaP,Tdap,and Td Vaccines (7 - Td or Tdap) 09/04/2022 09/04/2012, 11/28/2004, 05/12/2002, Additional history exists Influenza Vaccines (#1) 2023 12/20/19 16, 03/05/2013, 11/09/2011, Additional history exists COVID-19 Vaccine ( season) 2023 Hepatitis B Vaccines Completed 05/13/2001, 2000, 2000 HIB Vaccines Completed 12/05/2001, 04/19, 03/07/2001, Additional history exists Pneumococcal Vaccine Completed 09/11/2002, 05/13/2001, 03/07/2001, Additional history exists IPV Vaccines Completed 11/28/2004, 09/15, 03/07/2001, Additional history exists MMR Vaccines Completed 11/28/2004, 09/26/2001 Meningococcal Vaccine Aged Out 09/04/2012 No nehemiah michaelle eligible based on patient's age to complete this topic Varicella Vaccines Completed 09/04/2012, 09/26/2001 Hepatitis A Vaccines Completed 04/20/2014, 07/29/19 11 HPV Vaccines Completed 12/20/2015, 08/17, 04/20/2014
--- OUTSIDE RECORDS SUMMARY | 2024-05-01 09:25 | XMS_ITS | Encounter Summary ---
Author Organization [facility] Address [address] [place] [address] Phone Care Team Providers Care Junior Copywriter Name Role Phone Dorene Bashir MD Primary Care Provider Encounter Details Date Type Department Care Team (Late st Contact Info) Description 01/06/2014 Documentation [facility] [place] Family Medicine [address] [place], [place] [phone] Family Medicine, Physician [address] [place], [place] [address] Social History Tobacco Use Types Packs/Day Years [...] on filedocumented in this encounter Care Teams Junior Copywriter Relationship Specialty Start Date End Date Dorene Bashir MD [address] [place] [address] PCP - General Pediatrics 11/16/17 10/22/22 documented as of this encounter
--- OUTSIDE RECORDS SUMMARY | 2024-05-01 09:25 | XMS_ITS | Encounter Summary ---
Author Organization [facility] Address [address] [place] [address] Phone Care Team Providers Care Straightener Name Role Phone Dorene Bashir MD Primary Care Provider [phone] Encounter Details Date Type Department Care Team (Late st Contact Info) Description 01/04/2012 Documentation [facility] [place] [address] [place], [place] [phone] Family Medicine, Physician [address] [place], [place] [phone] Social History Tobacco Use Types Packs/Day Years [...] on filedocumented in this encounter Care Teams Straightener Relationship Specialty Start Date End Date Dorene Bashir MD [address] [place] [address] PCP - General Pediatrics 11/16/17 10/22/22 documented as of this encounter
--- OUTSIDE RECORDS SUMMARY | 2024-05-01 09:25 | XMS_ITS | Encounter Summary ---
Author Organization [facility] Address [address] [place] [address] Phone Care Team Providers Care Song Lyricist Name Role Phone Dorene Bashir MD Primary Care Provider [phone] Encounter Details Date Type Department Care Team (Late st Contact Info) Description 09/25/2011 Documentation [facility] [place] Family Medicine [address] [place], [place] [phone] Family Medicine, Physician [address] [place], [place] [phone] Social History Tobacco Use Types Packs/Day Years [...] on filedocumented in this encounter Care Teams Song Lyricist Relationship Specialty Start Date End Date Dorene Bashir MD [address] [place] [address] PCP - General Pediatrics 11/16/17 10/22/22 documented as of this encounter
--- OUTSIDE RECORDS SUMMARY | 2024-05-01 09:25 | XMS_ITS | Encounter Summary ---
Author Organization [facility] Address [address] [place] [address] Phone Care Team Providers Care Retail Beauty Specialist Name Role Phone Dorene Bashir MD Primary Care Provider [phone] Encounter Details Date Type Department Care Team (Late st Contact Info) Description 11/01/2016 Conversion Encounter [facility] [place] [address] [place] [address] Social History Tobacco Use Types Packs/Day Years Used Date Smoking Tobacco: Never Comments:Never smoker Sex and Gender Information Value Date Recorded Sex Assigned at Not on file Legal Sex Male 5:12 PM EDT Gender Identity Not on file Sexual Orientation Not on file documented as of this encounter Plan of Treatment Not on file documented as of this encounter Visit Diagnoses Not on filedocumented in this encounter Care Teams Retail Beauty Specialist Relationship Specialty Start Date End Date Dorene Bashir MD [address] [place] [address] PCP - General Pediatrics 11/16/17 10/22/22 documented as of this encounter
--- OUTSIDE RECORDS SUMMARY | 2024-05-01 09:25 | XMS_ITS | Encounter Summary ---
Author Organization [facility] Address [address] [place] [address] Phone Care Team Providers Care Advertising Space Clerk Name Role Phone Dorene Bashir MD Primary Care Provider [phone] Encounter Details Date Type Department Care Team (Late st Contact Info) Description 06/20/2009 Documentation [facility] [place] Family Medicine [address] [place], [place] [phone] Family Medicine, Physician [address] [place], [place] [phone] Social History Tobacco Use Types Packs/Day Years [...] on filedocumented in this encounter Care Teams Advertising Space Clerk Relationship Specialty Start Date End Date Dorene Bashir MD [address] [place] [address] PCP - General Pediatrics 11/16/17 10/22/22 documented as of this encounter
--- OUTSIDE RECORDS SUMMARY | 2024-05-01 09:25 | XMS_ITS | Encounter Summary ---
Author Organization [facility] Address [address] [place] [address] Phone Care Team Providers Care Package Crimper Name Role Phone Dorene Bashir MD Primary Care Provider [phone] Encounter Details Date Type Department Care Team (Late st Contact Info) Description 01/06/2014 Documentation [facility] [place] [address] [place], [place] [phone] Family Medicine, Physician [address] [place], [place] [address] Social History Tobacco Use Types Packs/Day Years [...] on filedocumented in this encounter Care Teams Package Crimper Relationship Specialty Start Date End Date Dorene Bashir MD [address] [place] [address] PCP - General Pediatrics 11/16/17 10/22/22 documented as of this encounter
--- OUTSIDE RECORDS SUMMARY | 2024-05-01 09:25 | XMS_ITS | Encounter Summary ---
Author Organization [facility] Address [address] [place] [address] Phone Care Team Providers Care Electrical Intern Name Role Phone Dorene Bashir MD Primary Care Provider [phone] Encounter Details Date Type Department Care Team (Late st Contact Info) Description 12/19/2011 Documentation [facility] [place] Family Medicine [address] [place], [place] [phone] Family Medicine, Physician [address] [place], [place] [address] Social History Tobacco Use Types Packs/Day Years [...] on filedocumented in this encounter Care Teams Electrical Intern Relationship Specialty Start Date End Date Dorene Bashir MD [address] [place] [address] PCP - General Pediatrics 11/16/17 10/22/22 documented as of this encounter
== END 2024-05-01 12:23 | disposition home or self-care (01) ==
PROVIDERS: Visit Provider Physician Assistant
DX: M23.91 Unspecified internal derangement of right knee (principal)
CPT/HCPCS: 99204

== ENCOUNTER → 2024-05-01 09:08 | Outpatient (BNV) | payer MEDICAID, SELFPAY | PROVIDERS: Visit Provider Specialist | DX: M25.561 Pain in right knee (principal) | CPT/HCPCS: 73560 ==

== ENCOUNTER 2024-05-07 18:47 | Outpatient (REF) | payer MEDICAID, SELFPAY ==
--- NOTE | ~2024-05-07 | MR_ITS ---
CLINICAL HISTORY: M23.91 - Unspecified internal derangement of right knee MR right knee without gadolinium Comparison: DX - XR KNEE RT 1V - 05/01/24 09:08 EST CA/SR - XR KNEE RT 2V - 03/02/24 20:30 EST Findings: No fractures. Mild ill-defined T2 signal elevation within the anterior weight-bearing aspect of the lateral femoral condyle as well as the posterior weight-bearing aspect of the lateral tibial plateau. Mild ill-defined T2 signal elevation within the posterior weight-bearing aspect of the medial tibial plateau.Well-circumscribed 13 mm cortical based high T2 intensity focus within the posterior aspect of the distal femur, with a thin surrounding low T2 rim. Moderate knee joint effusion. Small ganglion cyst along the popliteus. The anterior cruciate ligament demonstrates moderate posterior bowing and is moderately attenuated. Posterior cruciate ligament is intact. Medial and lateral collateral ligaments are intact. Patellar retinacula and iliotibial band are intact. No tears of the quadriceps, patellar, popliteus, or flexor tendons. Linear horizontal high T2 signal intensity traverses the inner, middle, and peripheral 3rd of the medial meniscal body, demonstrating inferior articular surface extension, indicating horizontal tearing. There is moderate T2 signal elevation within the peripheral 3rd of the posterior horn medial meniscus as well as the adjacent posterior soft tissues. IMPRESSION: 1. Partial-thickness anterior cruciate ligament tear. 2. Medial meniscal tearing and meniscocapsular junction injury. 3. Probable fibrous cortical defect within the distal femur posteriorly. 4. Knee joint effusion. 5. Contusions within the distal femur and proximal tibia. This document has been electronically signed by: Karen Cao MD on 05/08/2024 13:35:23
--- OUTSIDE RECORDS SUMMARY | 2024-05-07 18:48 | XMS_ITS | Encounter Summary ---
Author Organization [facility] Address [address] [place] [address] Phone Care Team Providers Care Exhibit Specialist Name Role Phone Dorene Bashir MD Primary Care Provider [phone] Encounter Details Date Type Department Care Team (Late st Contact Info) Description 09/25/2011 Documentation [facility] [place] [address] [place], [place] [phone] Family Medicine, Physician [address] [place], [place] [phone] Social History Tobacco Use Types Packs/Day Years [...] on filedocumented in this encounter Care Teams Exhibit Specialist Relationship Specialty Start Date End Date Dorene Bashir MD [address] [place] [address] PCP - General Pediatrics 11/16/17 10/22/22 documented as of this encounter
--- OUTSIDE RECORDS SUMMARY | 2024-05-07 18:48 | XMS_ITS | Encounter Summary ---
Author Organization [facility] Address [address] [place] [address] Phone Care Team Providers Care Office Electrician Name Role Phone Dorene Bashir MD Primary Care Provider [phone] Encounter Details Date Type Department Care Team (Late st Contact Info) Description 09/07/2011 Documentation [facility] [place] [address] [place], [place] [phone] Family Medicine, Physician [address] [place], [place] [phone] Social History Tobacco Use Types Packs/Day Years [...] on filedocumented in this encounter Care Teams Office Electrician Relationship Specialty Start Date End Date Dorene Bashir MD [address] [place] [address] PCP - General Pediatrics 11/16/17 10/22/22 documented as of this encounter
--- OUTSIDE RECORDS SUMMARY | 2024-05-07 18:48 | XMS_ITS | Encounter Summary ---
Author Organization [facility] Address [address] [place] [address] Phone Care Team Providers Care Supervisor Inspecting Name Role Phone Dorene Bashir MD Primary Care Provider [phone] Encounter Details Date Type Department Care Team (Late st Contact Info) Description 08/31/2011 Documentation [facility] [place] [address] [place], [place] [phone] Family Medicine, Physician [address] [place], [place] [phone] Social History Tobacco Use Types Packs/Day Years [...] on filedocumented in this encounter Care Teams Supervisor Inspecting Relationship Specialty Start Date End Date Dorene Bashir MD [address] [place] [address] PCP - General Pediatrics 11/16/17 10/22/22 documented as of this encounter
--- OUTSIDE RECORDS SUMMARY | 2024-05-07 18:48 | XMS_ITS | Encounter Summary ---
Author Organization [facility] Address [address] [place] [address] Phone Care Team Providers Care Aviation Project Engineer Name Role Phone Dorene Bashir MD Primary Care Provider [phone] Encounter Details Date Type Department Care Team (Late st Contact Info) Description 11/01/2016 Conversion Encounter [facility] [place] [address] [place] [address] Social History Tobacco Use Types Packs/Day Years [...] on filedocumented in this encounter Care Teams Aviation Project Engineer Relationship Specialty Start Date End Date Dorene Bashir MD [address] [place] [address] PCP - General Pediatrics 11/16/17 10/22/22 documented as of this encounter
--- OUTSIDE RECORDS SUMMARY | 2024-05-07 18:49 | XMS_ITS | Encounter Summary ---
Author Organization [facility] Address [address] [place] [address] Phone Care Team Providers Care Compactor Driver Name Role Phone Dorene Bashir MD Primary Care Provider [phone] Encounter Details Date Type Department Care Team (Late st Contact Info) Description 12/19/2011 Documentation [facility] [place] [address] [place], [place] [phone] Family Medicine, Physician [address] [place], [place] 4208[address] Social History Tobacco Use Types Packs/Day Years [...] on filedocumented in this encounter Care Teams Compactor Driver Relationship Specialty Start Date End Date Dorene Bashir MD [address] [place] [address] PCP - General Pediatrics 11/16/17 10/22/22 documented as of this encounter
--- OUTSIDE RECORDS SUMMARY | 2024-05-07 18:49 | XMS_ITS | Clinical Summary ---
Author Organization [facility] Address [address] [place] [address] Phone Care Team Providers Care Manager Of It Name Role Phone Unavailable Primary Care Provider [...] (attention deficit hyperactivity disorder) 07/12/2009 Overview (12/04/2018): Seeesocbar Molina at [facility] [place] 2]. Was on focalin in 2014 but no longer. DCF involved in past; as of 2018., back on focalin per psych and has therapist Seeescobar Molina at [facility] [place] 2]. Was on focalin in 2014 but no longer. 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 Has been on & off growth hormone over past few years. Lots of compliance issues. Not on GH currently. Last note from Endo 2014. Psoriasis 07/12/2009 Overview (12/04/2018): Used to see derm in [place]. Non-compliant with meds & f/u. Saw Janae here in 04/03 and on triamcinolone cream and derma-smoothe Used to see derm in [place]. Non-compliant with meds & FU. No meds currently Assessment & Plan (12/04/2018 10:57 AM EDT): Images from the original note were not included. [place]-smoothe FS scalp oil Q HS to scalp [...]
--- OUTSIDE RECORDS SUMMARY | 2024-05-07 18:49 | XMS_ITS | Encounter Summary ---
Author Organization [facility] Address [address] [place] [address] Phone Care Team Providers Care Chief Medical Director Name Role Phone Dorene Bashir MD Primary Care Provider [phone] Encounter Details Date Type Department Care Team (Late st Contact Info) Description 01/04/2012 Documentation [facility] [place] [address] [place], [place] [phone] Family Medicine, Physician [address] [place], [place] [phone] Social History Tobacco Use Types Packs/Day Years [...] on filedocumented in this encounter Care Teams Chief Medical Director Relationship Specialty Start Date End Date Dorene Bashir MD [address] [place] [address] PCP - General Pediatrics 11/16/17 10/22/22 documented as of this encounter
--- OUTSIDE RECORDS SUMMARY | 2024-05-07 18:49 | XMS_ITS | Encounter Summary ---
Author Organization [facility] Address [address] [place] [address] Phone Care Team Providers Care Type Soldering Machine Tender Name Role Phone Dorene Bashir MD Primary Care Provider [phone] Encounter Details Date Type Department Care Team (Late st Contact Info) Description 01/06/2014 Documentation [facility] [place] Family Medicine [address] [place], [place] [phone] Family Medicine, Physician [address] [place], [place] 369751 Social History Tobacco Use Types Packs/Day Years [...] on filedocumented in this encounter Care Teams Type Soldering Machine Tender Relationship Specialty Start Date End Date Dorene Bashir MD [address] [place] [address] PCP - General Pediatrics 11/16/17 10/22/22 documented as of this encounter
--- OUTSIDE RECORDS SUMMARY | 2024-05-07 18:49 | XMS_ITS | Encounter Summary ---
Author Organization [facility] Address [address] [place] [address] Phone Care Team Providers Care Cota Name Role Phone Dorene Bashir MD Primary Care Provider [phone] Encounter Details Date Type Department Care Team (Late st Contact Info) Description 01/06/2014 Documentation [facility] [place] Family Medicine [address] [place], [place] [phone] Family Medicine, Physician [address] [place], [place] 2315[address] Social History Tobacco Use Types Packs/Day Years [...] on filedocumented in this encounter Care Teams Cota Relationship Specialty Start Date End Date Dorene Bashir MD [address] [place] [address] PCP - General Pediatrics 11/16/17 10/22/22 documented as of this encounter
--- OUTSIDE RECORDS SUMMARY | 2024-05-07 18:49 | XMS_ITS | Encounter Summary ---
Author Organization [facility] Address [address] [place] [address] Phone Care Team Providers Care Long Wall Mining Machine Helper Name Role Phone Dorene Bashir MD Primary Care Provider [phone] Encounter Details Date Type Department Care Team (Late st Contact Info) Description 06/20/2009 Documentation [facility] [place] [address] [place], [place] [phone] Family Medicine, Physician [address] [place], [place] [phone] Social History Tobacco Use Types Packs/Day Years [...] on filedocumented in this encounter Care Teams Long Wall Mining Machine Helper Relationship Specialty Start Date End Date Dorene Bashir MD [address] [place] [address] PCP - General Pediatrics 11/16/17 10/22/22 documented as of this encounter
== END 2024-05-07 18:48 | disposition home or self-care (01) ==
LOC: HO.MRI 18:47
PROVIDERS: Visit Provider Physician Assistant
DX: M23.91 Unspecified internal derangement of right knee (principal)
CPT/HCPCS: 73721

== ENCOUNTER → 2024-05-07 18:52 | Outpatient (BNV) | payer MEDICAID, SELFPAY | PROVIDERS: Visit Provider Radiology Diagnostic Radiology | DX: S83.231A Complex tear of medial meniscus, current injury, right knee, initial encounter (principal); S80.11XA Contusion of right lower leg, initial encounter; M25.461 Effusion, right knee | CPT/HCPCS: 73721 ==

== ENCOUNTER 2024-06-13 16:46 | Emergency (ER) | payer MEDICAID, SELFPAY ==
--- NOTE | 2024-06-13 17:04 | ED.GENADULT ---
HPI - General Adult General Chief complaint: Eye Problems Stated complaint: right eye pain left arm pain/numbness Time Seen by Provider: 06/13/24 18:35 Source: patient Limitations: no limitations History of Present Illness ED Provider: Tess Ewing PA-C HPI narrative: 23-year-old male presents with right eye pain. Patient states he was using crazy glue, he was using a marketing communications associate to make it more fluid, the smoke got in his eye and irritated it. He does not wear glasses or contacts. No change in vision. Related Data Previous Rx's ?Medication ?Instructions ?Recorded ibuprofen 400 mg tablet 400 mg PO Q6H PRN pain #14 tabs 03/02/24 Allergies Allergy/AdvReac Type Severity Reaction Status Date / Time No Known Allergies Allergy Verified 06/13/24 17:07 [No Known Allergies*] Review of Systems Review of Systems: Yes all other systems are reviewed and are negative Constitutional: Constitutional: Denies fatigue, Denies fever(s) and Denies headache(s) Eyes: Eyes: Denies change in vision and Reports eye pain ENT: Denies dizziness, Denies headache(s) and Denies sinus pain Cardiovascular: Cardiovascular: Denies chest pain Gastrointestinal: Gastrointestinal: Denies abdominal pain, Denies nausea and Denies vomiting Neurologic: Denies dizziness and Denies headache(s) Endocrine: Endocrine: Denies fatigue [facility] Past Medical History Attestation statement: The following information was validated with the patient. Social History Social History (Updated 05/01/24 @ 09:17 by Fili Santoro) Unable to assess alcohol history related to: Unknown Alcohol intake: never Patient Tobacco Use Status: Never used Tobacco Use of substances other than those prescribed or required for medical reasons: Unknown Substance Use Type: Marijuana Advance Directives: No Advance Directives Information Provided: No Current occupational status: unemployed Physical Exam ED Vital Signs: Vital Signs - 24 hr 06/13/24 17:05 Temperature 97.6 F Pulse Rate 91 Respiratory Rate 18 Blood Pressure 127/57 L Pulse Oximetry 100 Oxygen Delivery Method Room Air BMI result Body Mass Index 22.3 Const Other: Alert Orientation/consciousness: patient oriented x3 Eyes Other: No injection of the sclera, with fluorescein stain there was no corneal abrasion Resp Effort & Inspection: normal respiratory effort Cardio Other: Normal peripheral perfusion Skin Other: Warm dry no rash Neuro General: patient oriented x3, gait normal, no focal motor deficits and CN's II-XI intact bilaterally Psych Other: Belligerent Course Course Course Narrative: Medical screening exam performed. Please refer to detailed history, exam, evaluation, and management by primary provider. Right eye pain after getting smoke in the eye yesterday. Occasional blurred vision of the right eye. Does not wear glasses or contacts. In addition reporting intermittent numbness and tingling in the left arm which she has had previously and multiple locations. No direct trauma. Wet Process Miller Head is 5/5 bilaterally. Medications Administered Discontinued Medications Generic Name Dose Route Start Last Admin Trade Name Freq PRN Reason Stop Dose Admin Fluorescein Sodium 1 strip 06/13/24 17:08 06/13/24 18:37 Fluorescein Sodium Strip EYE-RIGHT 06/13/24 17:09 1 strip ONCE ONE Administration Tetracaine HCl 3 drop 06/13/24 20:08 06/13/24 20:30 Tetracaine Hcl 0.5% Oph Holly 5 Ml Drops EYE-RIGHT 06/13/24 20:09 Not Given ONCE ONE Tetracaine HCl 3 drop 06/13/24 20:15 06/13/24 20:29 Tetracaine Hcl/Pf 0.5% Oph [place] 4 Ml Drops EYE-RIGHT 06/13/24 20:16 3 drop ONCE ONE Administration Medical Decision Making Medical Decision Making [facility] Narrative: 23-year-old male presents with right eye pain. Patient states he was using crazy glue, he was using a marketing communications associate to make it more fluid, the smoke got in his eye and irritated it. He does not wear glasses or contacts. No change in vision. No chronic issues History: Per patient I have considered the following differential diagnoses: Allergic conjunctivitis, corneal abrasion, corneal ulceration, Plan: Eye exam was unremarkable, there was no acute injury, he has minimal irritation we will send with the care instructions. Discharge Plan Discharge Clinical Impression: Irritation of right eye Patient Disposition: Home, Self-Care Additional Instructions: Your eye exam was normal, you do not have a scratch on the eye. Use [id number] artificial tears to help lubricate the eye. Follow up with your primary care provider as needed. Prescriptions: No Action ibuprofen 400 mg tablet 400 mg PO Q6H PRN (Reason: pain) Qty: 14 0RF Print Language: Mongolian
[2024-06-13 17:05] VITALS: BP 127/57; PULSE 91; RESP 18; TEMP 36.4; O2SAT 100; BMI 22.3
[2024-06-13] MEDS: Fluorescein Sodium STRIP 1 STRIP EYE-RIGHT (18:37)
[2024-06-13] MEDS: Tetracaine HCl/PF 0.5% Oph Sol 4 ML DROPS 3 DROP EYE-RIGHT (20:29)
[2024-06-13 20:44] VITALS: BP 127/57; PULSE 91; RESP 18; TEMP 36.4; O2SAT 100
== END 2024-06-13 20:44 | disposition home or self-care (01) ==
PROVIDERS: Emergency Provider Emergency Medicine
DX: H57.11 Ocular pain, right eye (principal); M79.602 Pain in left arm; R20.0 Anesthesia of skin
CPT/HCPCS: 99283

== ENCOUNTER 2024-06-29 14:07 | Outpatient (AMB) | payer MEDICAID, SELFPAY ==
--- NOTE | 2024-06-29 14:11 | A.OFFVIS_ITS ---
Intake Visit Reasons: OV - Right Knee MRI Review - Discuss ACL Recon Intake Note: Jose Alberto is a 23 year old male who presents today for a right knee MRI review. He was injured in February of 2024 when playing basketball. IMPRESSION: 1. Partial-thickness anterior cruciate ligament tear. 2. Medial meniscal tearing and meniscocapsular junction injury. 3. Probable fibrous cortical defect within the distal femur posteriorly. 4. Knee joint effusion. 5. Contusions within the distal femur and proximal tibia. Allergies No Known Allergies [No Known Allergies*] Allergy (Verified 06/13/24 17:07) HPI HPI OV - Right Knee MRI Review - Discuss ACL Recon: Details: 23-year-old male who injured his right knee while playing basketball in long-term. He sought treatment once he was released and MRI was obtained and showed a partial ACL tear. He states he feels well except when he is playing basketball his knee will give way. He has not done any physical therapy. He lives in [place]. [facility] Social History (Updated 05/01/24 @ 09:17 by Fili Santoro) Unable to assess alcohol history related to: Unknown Alcohol intake: never Patient Tobacco Use Status: Never used Tobacco Substance Use Type: Marijuana Current occupational status: unemployed Physical Exam Extrem Other: Negative pivot shift although examination limited by apprehension. No effusion. He has a 1+ Melodie's/anterior drawer question 2+. Results Reviewed Results Reviewed: I personally reviewed the MR images. 1. Partial-thickness anterior cruciate ligament tear. 2. Medial meniscal tearing and meniscocapsular junction injury. 3. Probable fibrous cortical defect within the distal femur posteriorly. 4. Knee joint effusion. 5. Contusions within the distal femur and proximal tibia. Assessment & Plan Assessment & Plan (1) ACL injury tear: Code(s): S83.519A - Sprain of anterior cruciate ligament of unspecified knee, initial encounter Category: Medical Plan: This is a 23-year-old with giving way and MRI evidence of a partial-thickness ACL tear. I recommend physical therapy for strengthening. Follow up after physical therapy if giving way persists. Coding Level of Care Code Est Pt Level 3 (07895) Diagnoses ACL injury tear S83.519A
--- OUTSIDE RECORDS SUMMARY | 2024-06-29 16:29 | XMS_ITS | Encounter Summary ---
Author Organization [facility] Address [address] [place] [address] Phone Care Team Providers Care Government Clerk Name Role Phone Dorene Bashir MD Primary Care Provider [phone] Encounter Details Date Type Department Care Team (Late st Contact Info) Description 01/06/2014 Documentation [facility] [place] Family Medicine [address] [place], [place] [phone] Family Medicine, Physician [address] [place], [place] [phone] Social History Tobacco Use Types Packs/Day Years [...] on filedocumented in this encounter Care Teams Government Clerk Relationship Specialty Start Date End Date Dorene Bashir MD [address] [place] [address] PCP - General Pediatrics 11/16/17 10/22/22 documented as of this encounter
--- OUTSIDE RECORDS SUMMARY | 2024-06-29 16:29 | XMS_ITS | Encounter Summary ---
Author Organization [facility] Address [address] [place] [address] Phone Care Team Providers Care Nurse Administrator Name Role Phone Dorene Bashir MD Primary Care Provider [phone] Encounter Details Date Type Department Care Team (Late st Contact Info) Description 12/19/2011 Documentation [facility] [place] Family Medicine [address] [place], [place] [phone] Family Medicine, Physician [address] [place], [place] [phone] Social History Tobacco Use Types Packs/Day Years [...] on filedocumented in this encounter Care Teams Nurse Administrator Relationship Specialty Start Date End Date Dorene Bashir MD [address] [place] [address] PCP - General Pediatrics 11/16/17 10/22/22 documented as of this encounter
--- OUTSIDE RECORDS SUMMARY | 2024-06-29 16:29 | XMS_ITS | Encounter Summary ---
Author Organization [facility] Address [address] [place] [address] Phone Care Team Providers Care Plant Etiologist Name Role Phone Dorene Bashir MD Primary Care Provider [phone] Encounter Details Date Type Department Care Team (Late st Contact Info) Description 06/20/2009 Documentation [facility] [place] Family Medicine [address] [place], [place] [phone] Family Medicine, Physician [address] [place], [place] [phone] Social History Tobacco Use Types Packs/Day Years [...] filedocumented in this encounter Care Teams Plant Etiologist Relationship Specialty Start Date End Date Dorene Bashir MD [address] [place] [address] PCP - General Pediatrics 11/16/17 10/22/22 documented as of this encounter
--- OUTSIDE RECORDS SUMMARY | 2024-06-29 16:29 | XMS_ITS | Encounter Summary ---
Author Organization [facility] Address [address] [place] [address] Phone Care Team Providers Care Stretcher Leveler Operator Name Role Phone Dorene Bashir MD Primary Care Provider Encounter Details Date Type Department Care Team (Late st Contact Info) Description 09/25/2011 Documentation [facility] [place] Family Medicine [address] [place], [place] [phone] Family Medicine, Physician [address] [place], [place] [phone] Social History Tobacco Use Types Packs/Day Years [...] on filedocumented in this encounter Care Teams Stretcher Leveler Operator Relationship Specialty Start Date End Date Dorene Bashir MD [address] [place] [address] PCP - General Pediatrics 11/16/17 10/22/22 documented as of this encounter
--- OUTSIDE RECORDS SUMMARY | 2024-06-29 16:29 | XMS_ITS | Encounter Summary ---
Author Organization [facility] Address [address] [place] [address] Phone Care Team Providers Care Powder And Primer Canning Leader Name Role Phone Dorene Bashir MD Primary Care Provider [phone] Encounter Details Date Type Department Care Team (Late st Contact Info) Description 08/31/2011 Documentation [facility] [place] Family Medicine [address] [place], [place] [phone] Family Medicine, Physician [address] [place], [place] [phone] Social History Tobacco Use Types Packs/Day Years [...] on filedocumented in this encounter Care Teams Powder And Primer Canning Leader Relationship Specialty Start Date End Date Dorene Bashir MD [address] [place] [address] PCP - General Pediatrics 11/16/17 10/22/22 documented as of this encounter
--- OUTSIDE RECORDS SUMMARY | 2024-06-29 16:29 | XMS_ITS | Encounter Summary ---
Author Organization [facility] Address [address] [place] [address] Phone Care Team Providers Care Criminal Justice Lawyer Name Role Phone Dorene Bashir MD Primary Care Provider [phone] Encounter Details Date Type Department Care Team (Late st Contact Info) Description 01/06/2014 Documentation [facility] [place] Family Medicine [address] [place], [place] [phone] Family Medicine, Physician [address] [place], [place] [phone] Social History Tobacco Use Types Packs/Day Years [...] on filedocumented in this encounter Care Teams Criminal Justice Lawyer Relationship Specialty Start Date End Date Dorene Bashir MD [address] [place] [address] PCP - General Pediatrics 11/16/17 10/22/22 documented as of this encounter
--- OUTSIDE RECORDS SUMMARY | 2024-06-29 16:29 | XMS_ITS | Encounter Summary ---
Author Organization [facility] Address [address] [place] [address] Phone Care Team Providers Care Director Of Slot Operations Name Role Phone Dorene Bashir MD Primary Care Provider [phone] Encounter Details Date Type Department Care Team (Late st Contact Info) Description 11/01/2016 Conversion Encounter [facility] [place] [address] [place] [address] Social History Tobacco Use Types Packs/Day Years [...] on filedocumented in this encounter Care Teams Director Of Slot Operations Relationship Specialty Start Date End Date Dorene Bashir MD [address] [place] [address] PCP - General Pediatrics 11/16/17 10/22/22 documented as of this encounter
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
--- OUTSIDE RECORDS SUMMARY | 2024-06-29 16:29 | XMS_ITS | Encounter Summary ---
Author Organization [facility] Address [address] [place] [address] Phone Care Team Providers Care Middleware Systems Architect Name Role Phone Dorene Bashir MD Primary Care Provider [phone] Encounter Details Date Type Department Care Team (Late st Contact Info) Description 01/04/2012 Documentation [facility] [place] Family Medicine [address] [place], [place] [phone] Family Medicine, Physician [address] [place], [place] [phone] Social History Tobacco Use Types Packs/Day Years [...] on filedocumented in this encounter Care Teams Middleware Systems Architect Relationship Specialty Start Date End Date Dorene Bashir MD [address] [place] [address] PCP - General Pediatrics 11/16/17 10/22/22 documented as of this encounter
--- OUTSIDE RECORDS SUMMARY | 2024-06-29 16:29 | XMS_ITS | Encounter Summary ---
Author Organization [facility] Address [address] [place] [address] Phone Care Team Providers Care Offset Plate Maker Name Role Phone Dorene Bashir MD Primary Care Provider Encounter Details Date Type Department Care Team (Late st Contact Info) Description 09/07/2011 Documentation [facility] [place] Family Medicine [address] [place], [place] [phone] Family Medicine, Physician [address] [place], [place] [phone] Social History Tobacco Use Types Packs/Day Years [...] on filedocumented in this encounter Care Teams Offset Plate Maker Relationship Specialty Start Date End Date Dorene Bashir MD [address] [place] [address] PCP - General Pediatrics 11/16/17 10/22/22 documented as of this encounter
== END 2024-06-29 14:59 | disposition home or self-care (01) ==
LOC: HO.HOS 14:07
PROVIDERS: Visit Provider Orthopaedic Surgery
DX: S83.511A Sprain of anterior cruciate ligament of right knee, initial encounter (principal)
CPT/HCPCS: 99213

== ENCOUNTER → 2024-06-29 14:07 | Outpatient (BNVA) | payer MEDICAID, SELFPAY | PROVIDERS: Visit Provider Orthopaedic Surgery | DX: S83.519A Sprain of anterior cruciate ligament of unspecified knee, initial encounter (principal) | CPT/HCPCS: 99212 ==

== ENCOUNTER 2024-10-14 03:06 | Emergency (ER) | payer OTHER, SELFPAY ==
--- NOTE | ~2024-10-14 | XR_ITS ---
CLINICAL HISTORY: injury 4 views right wrist Comparison: None provided Findings: There is an incidental ulnar styloid ossicle. There is a small minimally displaced fracture of the dorsal aspect of the lunate seen on the lateral view. Joint spaces and joint alignment are normal. There is no radiopaque foreign body. Impression: Small minimally displaced fracture of the dorsal aspect of the lunate. This document has been electronically signed by: Shahab Grady MD on 10/14/2024 04:03:34
--- NOTE | ~2024-10-14 | XR_ITS ---
CLINICAL HISTORY: injury 3 views right hand Comparison: CR - XR WRIST RT MIN 3V - 10/14/24 03:26 EDT Findings: Small minimally displaced fracture of the dorsal aspect of the lunate as seen on the wrist radiographs is again noted. There is no fracture within the hand. Joint spaces and joint alignment are normal. There is no radiopaque foreign body. Impression: No acute osseous abnormality in the right hand. This document has been electronically signed by: Shahab Grady MD on 10/14/2024 04:03:49
[2024-10-14 03:11] VITALS: BP 104/64; BP 114/74; PULSE 57; PULSE 68; RESP 18; TEMP 36.9; O2SAT 97; O2SAT 99; BMI 24.0
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
[2024-10-14] MEDS: Diphth,Pertus(ACell),Tet Adult 0.5 ML SYRINGE IM (06:17)
[2024-10-14 06:21] VITALS: BP 118/76; PULSE 96; RESP 16; TEMP 36.8; O2SAT 100
[2024-10-14 06:26] VITALS: BP 118/76; PULSE 96; RESP 16; TEMP 36.8; O2SAT 100
== END 2024-10-14 07:07 ==
PROVIDERS: Emergency Provider Emergency Medicine
DX: S61.411A Laceration without foreign body of right hand, initial encounter (principal); S62.101A Fracture of unspecified carpal bone, right wrist, initial encounter for closed fracture; Y04.8XXA Assault by other bodily force, initial encounter; Y93.9 Activity, unspecified; Y92.9 Unspecified place or not applicable; Y99.9 Unspecified external cause status; Z23 Encounter for immunization; Z65.3 Problems related to other legal circumstances
CPT/HCPCS: 29125; 73110; 73130; 90471; 90715; 99284

== ENCOUNTER → 2024-10-14 03:25 | Outpatient (BNV) | payer OTHER, SELFPAY | PROVIDERS: Visit Provider Radiology Diagnostic Radiology | DX: S62.124A Nondisplaced fracture of lunate [semilunar], right wrist, initial encounter for closed fracture (principal) | CPT/HCPCS: 73110; 73130 ==